=== PATIENT | male | born 1945 | race Caucasian/White ===

== ENCOUNTER 2017-11-18 10:09 | Inpatient (IN) ==
--- NOTE | 2017-11-18 10:56 | P.HPUP ---
The Pre-Admit History and Physical Examination regarding the above named patient was reviewed (including, but not limited to, vital signs, heart, lungs, co-morbid conditions), and upon re-examination it is noted that: the patient's condition has not significantly changed since the last examination.
[2017-11-18] MEDS ORDERED: Chlorhexidine Gluconate 2% 1 Pack (2 Cloths) TOPICAL SCH (11:15)
[2017-11-18] MEDS: Metoprolol Tartrate 25 MG Tablet PO SCH ×2 (11:20→11:21)
[2017-11-18] MEDS ORDERED: Neostigmine Inj 5 MG/5 ML Syringe IV.PUSH ONE (12:00)
[2017-11-18] MEDS ORDERED: Sodium Chlor 0.9% Inj 500 ML IV.SIG SCH (12:00)
[2017-11-18] MEDS ORDERED: Lidocaine PF 1% Inj 5 ML Syringe INFILTRATN ONE (12:00)
[2017-11-18] MEDS ORDERED: Phenylephrine/NS 1000 MCG/10ML Syringe IV.PUSH ONE (12:00)
[2017-11-18] MEDS ORDERED: Glycopyrrolate Inj 1 MG/5 ML Syringe IV.PUSH ONE (12:00)
[2017-11-18] MEDS ORDERED: HYDROmorphone PF Inj 2 MG/ML Vial ONE (14:36)
[2017-11-18] MEDS ORDERED: Bupivacaine 0.5% Inj 50 ML MDV Vial INFILTRATN ONE (16:15)
[2017-11-18] MEDS ORDERED: Bupivacaine PF 0.5% Inj 30 ML Vial IRRIGATION ONE (16:15)
[2017-11-18] MEDS ORDERED: Acetaminophen 325 MG Tablet PO PRN (17:38)
[2017-11-18] MEDS ORDERED: Potassium Chlor 40 mEq Premix 40 MEQ/100 ML PIGGYBACK IV.SIG PRN (17:38)
[2017-11-18] MEDS ORDERED: Potassium Chlor 20 mEq Premix 20 MEQ/100 ML PIGGYBACK IV.SIG PRN (17:38)
[2017-11-18] MEDS ORDERED: Naloxone Inj 0.4 MG/ML Vial IV.PUSH PRN (17:41)
[2017-11-18] MEDS: KCL 20 mEq/D5W/NaCl 0.9% Inj 1,000 ML IV.CONT SCH (17:42)
[2017-11-18] MEDS ORDERED: *morphine SULFATE 10 MG/ML PERIprocedure ONLY ONE ×2 (17:51→18:10)
[2017-11-18] MEDS ORDERED: fentaNYL Citrate Inj 100 MCG/2 ML Ampul ONE (17:54)
[2017-11-18] MEDS ORDERED: KCL 20 mEq/D5W/NaCl 0.9% Inj 1,000 ML ONE (17:58)
[2017-11-18] MEDS ORDERED: Morphine Inj 30 MG/30 ML PCA.VIAL PCA ONE (17:58)
[2017-11-18] MEDS: Morphine Inj 30 MG/30 ML PCA.VIAL PCA PRN (18:10)
[2017-11-18] MEDS ORDERED: Ketorolac Inj 30 MG/ML (IVP) Vial ONE (18:16)
[2017-11-18] MEDS: Ketorolac Inj 30 MG/ML (IVP) Vial IV.PUSH PRN (20:59)
[2017-11-19] MEDS: KCL 20 mEq/D5W/NaCl 0.9% Inj 1,000 ML IV.CONT SCH ×4 (00:53→22:10)
[2017-11-19] MEDS: Morphine Inj 30 MG/30 ML PCA.VIAL PCA PRN ×2 (00:54→16:07)
[2017-11-19] MEDS: Ketorolac Inj 30 MG/ML (IVP) Vial IV.PUSH PRN ×2 (04:21→18:34)
[2017-11-19 04:49] LABS: Hematocrit 39.5 % (39.0-51.0); Hemoglobin 13.2 gm/dL (13.0-17.0); Lymph # (Auto) 0.4 th/mm3 (1.0-4.8); Mean Corpuscular HGB Conc 33.4 % (32.0-36.0); Mean Corpuscular Hemoglobin 28.5 pg (27.0-34.0); Mean Corpuscular Volume 85.5 fL (80.0-100.0); Mean Platelet Volume 7.2 fL (7.0-11.0); Mono # (Auto) 0.7 th/mm3 (0.0-0.9); Mono % (Auto) 5.3 % (0.0-8.0); Neut # (Auto) 11.9 th/mm3 (1.8-7.7); Neut % (Auto) 91.7 % (16.0-70.0); Platelet Count 258 th/mm3 (150-450); Red Blood Count 4.62 mil/mm3 (4.50-5.90)
[2017-11-19 05:14] LABS: Calcium 8.4 mg/dL (8.5-10.1); Carbon Dioxide 27.5 meq/L (21.0-32.0); Potassium 4.9 meq/L (3.5-5.1)
[2017-11-19] MEDS: Dextrose 5%/NaCl 0.9% Inj 1,000 ML IV.CONT SCH ×4 (06:15→20:00)
[2017-11-19] MEDS: LORazepam 0.5 MG Tablet PO SCH ×4 (06:30→18:33)
[2017-11-19] MEDS: Lisinopril 10 MG Tablet PO SCH (08:55)
[2017-11-19] MEDS: Pantoprazole Inj 40 MG Vial IV.PUSH SCH (08:56)
[2017-11-19] MEDS ORDERED: Non-Formulary Drug (Lisinopril-Hydrochlorothiazide [Lisinopril-Hydrochlorothiazide] 1 TAB) PO SCH (09:00)
--- NOTE | 2017-11-19 12:41 | MP ---
cc: Toño Lala MD DATE OF OPERATION: 11/18/2017 DATE OF PROCEDURE: 11/18/2017 PREOPERATIVE DIAGNOSIS: Diverticular disease with large diverticular abscess. PROCEDURE PERFORMED: 1. Exploratory laparotomy with proctosigmoidectomy and low pelvic anastomosis, omental flap. 2. Intraoperative colonoscopy. POSTOPERATIVE DIAGNOSIS: Large diverticular abscess. SURGEON: Toño Lala MD UX DEVELOPER: Demetri Steven MD DESCRIPTION OF PROCEDURE: The patient was placed in the supine position. After adequate general anesthesia, his legs were placed in universal stirrups and supported appropriately. Abdomen and perineum were then prepped with Betadine solution and draped in the usual sterile fashion. With Dr. Steven's assistance, the abdomen was opened through an infraumbilical transverse incision, dividing the rectus muscles with electrocautery. Exploration revealed a rock hard mass in the sigmoid colon and tethered down to the left pelvic sidewall and dome of the bladder. The proximal colon was palpated and felt to be pretty unremarkable. The small bowel was run from ligament of Treitz to the ileocecal valve and felt to be normal. Stomach and duodenum were unremarkable. Gallbladder had no stones. Great vessels were of normal caliber and fairly soft to palpation. First, the sigmoid colon was mobilized medially by dividing along the white line of Toldt. The left ureter was identified and carefully preserved. Dissection then proceeded up the left gutter, taking down attachments to the splenic flexure, entering the lesser sac and taking the gastrocolic omentum off the transverse colon. The right retroperitoneal space was then opened and the bowel dissected off the presacral fascia down toward the pelvic floor. Pedicle for the superior hemorrhoidal vessels identified and divided between Kellys, obtaining hemostasis with Vicryl ties. The left colic vessels were similarly taken for full left mobilization. Bowel dissected off the presacral fascia down to the pelvic floor, at which point anterior dissection was somewhat difficult, mobilizing the bowel off the bladder dome. We entered a large cavity, probably chronic diverticular abscess, full of necrotic and purulent looking fluid. This was all removed and suctioned. Granulation tissue along the cavity edges were also curetted clean. The bowel wall; however, did appear to be intact. After full mobilization off the sidewall, the rectum distally was much more pliable and soft, suitable for anastomosis. Proximal rectum and the mesorectum was divided and the bowel finally divided between a pursestring suture device and a Scar clamp. The bowel was then sized to reach the rectum without tension and with good blood supply, dividing the marginal artery in the mid sigmoid and taking the bowel between a pursestring suture device and a Scar clamp. The end of the bowel was sized to accept an EEA stapling anvil and this was secured with the pursestring suture. Dr. Steven inserted the EEA stapling instrument transanally under direct vision and came up to the rectal pouch and the pursestring suture was tied. The stapler was then reassembled and the bowel aligned properly. The stapler closed and fired. Upon withdrawal, 2 complete donuts of tissue were seen. Dr. Steven then inserted the colonoscope and under direct vision, passed it up to the proximal colon around toward the cecum. The ileocecal valve was normal. No vascular abnormalities or polyps were seen throughout the proximal colon. Upon withdrawal, insufflation confirmed an airtight anastomosis. Finally, the omentum was passed down the left gutter and placed in the abscess cavity. Chano-Morrison drain was placed in the presacral space and brought up through a stab wound in the right lower quadrant, secured to the skin with a nylon suture. Transverse incision was then closed, anatomically in 2 layers using #1 PDS sutures to reapproximate the respective fascial layers. The On-Q catheters were placed into the rectus sheaths on both sides and brought up through a subcutaneous tunnel above the transverse incision. The subcutaneous tissue was irrigated copiously and the skin closed with a row surgical ron. Wound area washed with normal saline and dried, sterile dressing of Telfa and gauze applied. The patient tolerated the procedure quite well and was brought to the recovery room in stable condition. Sponge and needle counts were correct at the end of the procedure. MD USAMA Farfan/MILAN , 12:15 PM , 12:26 PM
--- NOTE | 2017-11-19 23:36 | P.PNCS ---
Subjective Colorectal Surgery Post Op Day #: 1 Interval history: afebrile, VSS UO good ARIEL mod Objective Result Diagrams: 11/19/17 04:15 11/19/17 04:15 Objective Remarks: PE alert Abd - soft, flat, wound dry Assessment and Plan - Plan Imp: stable post-op OOB decr IVF tx to floor
[2017-11-20] MEDS: Dextrose 5%/NaCl 0.9% Inj 1,000 ML IV.CONT SCH ×2 (03:15→12:46)
[2017-11-20] MEDS: Ketorolac Inj 30 MG/ML (IVP) Vial IV.PUSH PRN ×2 (03:46→13:57)
[2017-11-20 06:09] LABS: Baso % (Auto) 0.2 % (0.0-2.0); Eos # (Auto) 0.2 th/mm3 (0.0-0.4); Eos % (Auto) 1.7 % (0.0-4.0); Hematocrit 36.1 % (39.0-51.0); Lymph # (Auto) 1.1 th/mm3 (1.0-4.8); Lymph % (Auto) 10.1 % (9.0-44.0); Mean Corpuscular HGB Conc 33.3 % (32.0-36.0); Mean Corpuscular Hemoglobin 28.5 pg (27.0-34.0); Mean Corpuscular Volume 85.5 fL (80.0-100.0); Mean Platelet Volume 7.5 fL (7.0-11.0); Mono # (Auto) 0.7 th/mm3 (0.0-0.9); Mono % (Auto) 6.3 % (0.0-8.0); Neut # (Auto) 8.8 th/mm3 (1.8-7.7); Neut % (Auto) 81.7 % (16.0-70.0); Platelet Count 201 th/mm3 (150-450); Red Blood Count 4.22 mil/mm3 (4.50-5.90); Red Cell Distribution Width 15.2 % (11.6-17.2); White Blood Count 10.8 th/mm3 (4.0-11.0)
[2017-11-20 06:28] LABS: Anion Gap 4 meq/L (5-15); Blood Urea Nitrogen 10 mg/dL (7-18); Calcium 7.9 mg/dL (8.5-10.1); Carbon Dioxide 28.2 meq/L (21.0-32.0); Chloride 108 meq/L (98-107); Glomerular Filtration Rate Greater Than 89 mL/min (>89); Glucose,Random 106 mg/dL (74-106); Potassium 4.2 meq/L (3.5-5.1); Sodium 140 meq/L (136-145)
[2017-11-20] MEDS: LORazepam 0.5 MG Tablet PO SCH ×3 (09:45→17:19)
[2017-11-20] MEDS: Pantoprazole Inj 40 MG Vial IV.PUSH SCH (09:45)
[2017-11-20] MEDS: Lisinopril 10 MG Tablet PO SCH (09:45)
[2017-11-20] MEDS: KCL 20 mEq/D5W/NaCl 0.9% Inj 1,000 ML IV.CONT SCH ×2 (10:23→20:00)
[2017-11-20] MEDS: Morphine Inj 30 MG/30 ML PCA.VIAL PCA PRN (11:48)
--- NOTE | 2017-11-20 21:10 | P.PNCS ---
Subjective Colorectal Surgery Post Op Day #: 2 Interval history: afebrile, VSS UO good ARIEL mod Objective Result Diagrams: 11/20/17 05:31 11/20/17 05:31 Objective Remarks: PE alert Abd - soft, flat, wound dry on-Q dc'd Assessment and Plan - Plan Imp: OOB decr IVF start PO, adv
[2017-11-21] MEDS: Dextrose 5%/NaCl 0.9% Inj 1,000 ML IV.CONT SCH (00:01)
[2017-11-21] MEDS: KCL 20 mEq/D5W/NaCl 0.9% Inj 1,000 ML IV.CONT SCH (04:14)
[2017-11-21] MEDS: Morphine Inj 30 MG/30 ML PCA.VIAL PCA PRN (04:53)
[2017-11-21] MEDS: Ketorolac Inj 30 MG/ML (IVP) Vial IV.PUSH PRN (04:58)
[2017-11-21] MEDS: Lisinopril 10 MG Tablet PO SCH (08:52)
[2017-11-21] MEDS: Pantoprazole Inj 40 MG Vial IV.PUSH SCH (08:52)
[2017-11-21] MEDS: LORazepam 0.5 MG Tablet PO SCH ×2 (08:52→12:36)
--- NOTE | 2017-11-21 10:44 | P.PNCS ---
Subjective Colorectal Surgery Post Op Day #: 3 Interval history: afebrile, VSS UO good +BM Objective Result Diagrams: 11/20/17 05:31 11/20/17 05:31 Objective Remarks: PE alert Abd - soft, flat, wound dry wound dry Assessment and Plan - Plan Imp: OOB decr IVF start PO, adv DC plans
--- NOTE | 2017-12-17 06:59 | MD ---
cc: Toño Lala MD OdonnellNghai blount DO DATE OF DISCHARGE: 11/21/2017 ADMITTING DIAGNOSIS: Diverticular disease with a large diverticular abscess. PROCEDURES: On 11/18/2017, exploratory laparotomy with proctosigmoidectomy, low pelvic anastomosis and omental flap, intraoperative colonoscopy. POSTOPERATIVE DIAGNOSES: 1. Diverticulitis with large pelvic abscess. 2. Normal colonoscopy. HISTORY OF PRESENT ILLNESS: Mr. Stanton is a 71-year-old male with left lower quadrant pelvic pain now for several weeks. The patient was evaluated as an outpatient and found to have significant diverticular disease with probable diverticulitis and either a large diverticulum or a perforated diverticulum with abscess formation. He continues to have fairly good bowel movements. Denies any nausea or vomiting, but has no appetite. He has been very tired lately and has not been able to resume full activity. He was brought to the hospital at this time for definitive surgical resection. Please see the history and physical for complete past medical and surgical history. PERTINENT PHYSICAL: A very pleasant heavyset male in no acute distress. Abdomen was round and full, not really distended. Bowel sounds are normal. There was some tenderness in the lower abdomen. No rebound or guarding. Fullness and maybe mass effect. Anal inspection revealed benign canal. Digital exam revealed good tone. No masses or tenderness or blood on the finger. HOSPITAL COURSE: After admission, the patient was taken to the operating room on 11/18/2017, at which point he underwent an exploratory laparotomy and proctosigmoidectomy, low pelvic anastomosis, omental flap, and intraoperative colonoscopy. He was found to have a very large diverticulum or probably a perforated diverticulum with abscess formation in the pelvis. The bowel distal to this appeared suitable for anastomosis and he did have a primary resection and anastomosis. He tolerated the procedure quite well. Initially, he was stabilized in the progressive care unit. His bowel function returned quite promptly and his diet was advanced accordingly. He required some assistance in ambulation and muscle strengthening. He also required some respiratory therapy for postoperative atelectasis. The patient was doing well enough to taper his IV fluids and considered ready for discharge home on 11/21/2017. Final pathology report did reveal a segment of rectosigmoid with acute diverticulitis, perforation, and abscess formation. No malignancy was seen. DISCHARGE INSTRUCTIONS: The patient was discharged eating a regular diet. He was encouraged to ambulate daily, avoiding any heavy lifting or straining. All preop medications were to be resumed. The patient will be seen in the office in 1 week's time for routine followup. Any problems prior to the scheduled office visit, patient was encouraged to call for more urgent attention. Toño Lala MD [facility]/rs , 10:48 PM , 10:56 PM
== END 2017-11-21 15:21 | disposition home or self-care (01) ==
LOC: HSDI 10:09 → HCPC 18:33 → N07 11-19 15:43
PROVIDERS: ADMIT Colon & Rectal Surgery; ATTEND Colon & Rectal Surgery